=== PATIENT | male | born 1955 | race Two or more races ===

== ENCOUNTER 2024-03-13 21:28 | Emergency (ER) | payer MEDICAID, OTHER ==
[~2024-03-13] VITALS: Ht 172.7 cm; Wt 100.0 kg
[2024-03-13 23:43] LABS: Basophils # (auto) 0.1 10 ^3/uL (0-0.2); Basophils % (auto) 0.8 % (0.0-2.0); Eosinophils # (auto) 0.1 10 ^3/uL (0-0.8); Eosinophils % (auto) 1.1 % (0.0-7.0); Hematocrit 47.7 % (41.0-53.0); Hemoglobin 16.7 g/dL (13.5-17.5); Lymphocytes # (auto) 0.7 10 ^3/uL (0.4-5.4); Lymphocytes % (auto) 5.6 % (10.0-50.0); Mean Corpuscular Hemoglobin 32.5 pg (28.0-32.0); Mean Corpuscular Volume 92.7 fL (80.0-100.0); Monocytes # (auto) 0.5 10 ^3/uL (0-1.3); Neutrophils # (auto) 11.6 10 ^3/uL (1.6-8.6); Neutrophils % (auto) 88.5 % (37.0-80.0); Nucleated Red Blood Cells % 0.1 %; Red Blood Cells 5.14 10^6/uL (4.5-5.90); Red Cell Distribution Width 14.6 % (11.8-14.3); White Blood Cell 13.1 10^3/uL (4.4-10.8)
[2024-03-13 23:53] LABS: Chloride 100 mmol/L (98-107); Potassium 4.3 mmol/L (3.5-5.1); Sodium 135 mmol/L (136-145)
[2024-03-13 23:54] LABS: Anion Gap 5 (5-15); Carbon Dioxide 30 mmol/L (20-30)
[2024-03-13 23:59] LABS: BUN/Creatinine Ratio 15.6 (10.0-20.0); Blood Urea Nitrogen 15 mg/dL (9-23); Glucose 214 mg/dL (74-106); Lipase 77 U/L (12-53)
[2024-03-14 00:03] LABS: Lactic Acid w/Reflex 2.3 mmol/L (0.4-2.0)
[2024-03-14] MEDS: LIDOCAINE VISCOUS 2% 15ML UD PO ONE (00:06)
[2024-03-14] MEDS: MAALOX PLUS or MAALOX 30 ML PO ONE (00:06)
[2024-03-14 00:14] VITALS: BP 156/84; TEMP 97.9
[2024-03-14 00:15] VITALS: PULSE 82; RESP 18; O2SAT 97
[2024-03-14] MEDS: SODIUM CHLORIDE 0.9% 1,000 ML IV ONE (00:50)
== END 2024-03-14 05:48 | disposition left against medical advice (07) ==
LOC: ER 21:28
DX: K20.90 Esophagitis, unspecified without bleeding (principal); E11.65 Type 2 diabetes mellitus with hyperglycemia; D72.829 Elevated white blood cell count, unspecified; I10 Essential (primary) hypertension; F15.90 Other stimulant use, unspecified, uncomplicated
CPT/HCPCS: 36415; 74176; 80048; 83605; 83690; 84484; 85025; 93005; 96360; 99284; J7030